=== PATIENT | female | born 1970 | race Caucasian/White ===

== ENCOUNTER 2021-06-30 20:19 | Emergency (ER) | payer OTHER ==
[~2021-06-30] VITALS: Ht 162.6 cm; Wt 83.9 kg
[2021-06-30] MEDS ORDERED: KETOROLAC TROMETHAMINE INJ 60 MG/2 ML VIAL IM ONE (21:00)
[2021-06-30] MEDS ORDERED: KETOROLAC TROMETHAMINE INJ 30 MG/ML VIAL ONE (21:05)
[2021-06-30 21:28] VITALS: BP 133/75
[2021-06-30] MEDS ORDERED: CYCL5TAB PO (22:44)
[2021-06-30] MEDS ORDERED: IBUP-1955 PO (22:44)
== END 2021-06-30 23:15 | disposition home or self-care (01) ==
LOC: ER 20:19
DX: S16.1XXA Strain of muscle, fascia and tendon at neck level, initial encounter (principal); V49.49XA Driver injured in collision with other motor vehicles in traffic accident, initial encounter; Y93.89 Activity, other specified; Y92.413 State road as the place of occurrence of the external cause; Y99.8 Other external cause status
CPT/HCPCS: 72040; 96372; 99283; J1885